=== PATIENT | male | born 1945 | race African-American/Black ===

== ENCOUNTER 2021-06-15 18:27 | Emergency (ER) | payer MEDICARE, OTHER ==
[~2021-06-15] VITALS: Ht 165.1 cm; Wt 63.5 kg
[2021-06-15] MEDS ORDERED: RISP0.5T5 PO (19:07)
[2021-06-15] MEDS ORDERED: BISA10SU61 RC (19:07)
[2021-06-15] MEDS ORDERED: MAGN400O6 PO (19:07)
[2021-06-15] MEDS ORDERED: MEMA10TA PO (19:07)
[2021-06-15] MEDS ORDERED: NA P133E RC (19:07)
[2021-06-15] MEDS ORDERED: MELA3TAB41 PO (19:07)
[2021-06-15] MEDS ORDERED: DONE10TA11 PO (19:07)
[2021-06-15] MEDS ORDERED: DOCU100C36 PO (19:07)
[2021-06-15] MEDS ORDERED: ACET-2154 PO (19:07)
[2021-06-15] MEDS ORDERED: ACET-73 PO (19:07)
[2021-06-15 19:22] LABS: MEAN CORPUSCULAR HEMOGLOBIN 31.8 uug (23.8-33.4); MEAN CORPUSCULAR VOLUME 92.9 fL (73.0-96.2); PLATELET COUNT (AUTO) 180 K/uL (152-348)
[2021-06-15 19:39] LABS: CARBON DIOXIDE 27 mmol/L (21-32); CHLORIDE 100 mmol/L (98-107); CREATININE 1.4 mg/dL (0.6-1.3); GLUCOSE 145 mg/dL (74-106); POTASSIUM 4.4 mmol/L (3.5-5.1); UREA NITROGEN, BLOOD 18 mg/dL (7-18)
[2021-06-15 19:44] LABS: ALANINE AMINOTRANSFERASE 25 U/L (16-63); ALKALINE PHOSPHATASE 96 U/L (50-136); ASPARTATE AMINOTRANSFERASE 42 U/L (15-37); BILIRUBIN,DIRECT 0.1 mg/dL (0.0-0.2); BILIRUBIN,TOTAL 0.4 mg/dL (0.2-1.0); TOTAL PROTEIN, SERUM 6.5 g/dL (6.4-8.2)
[2021-06-15] MEDS: IV NORMAL SALINE 1000 ML BAG IV ONE (19:54)
[2021-06-15 21:21] LABS: *BILIRUBIN,URIN NEGATIVE (NEGATIVE); *BLOOD, URINE 1+ (NEGATIVE); *CLARITY,URINE CLEAR (CLEAR); *COLOR,URINE YELLOW (YELLOW); *KETONES,URINE NEGATIVE (NEGATIVE); LEUKOCYTE ESTERASE ,URINE NEGATIVE (NEGATIVE); NITRITE, URINE NEGATIVE (NEGATIVE); UGLUCOSE NEGATIVE (NEGATIVE)
--- NOTE | 2021-06-15 22:19 | NUR ---
Spoke with pts granddaughter, Nya Blas, phone number is [phone]
[2021-06-15 22:44] LABS: BACTERIA,URINE NONE SEEN /HPF (NONE SEEN); SQUAMOUS EPITHELIAL CELL,UR FEW /HPF (NONE SEEN); WBC,URINE 0-3 /HPF (0-3)
--- NOTE | 2021-06-15 23:36 | NUR ---
CALLED [facility] . ETA IS 90MINS.
--- NOTE | 2021-06-15 23:44 | NUR ---
Spoke with Chinmay JACKSON from [facility] about discharge
--- NOTE | 2021-06-16 01:37 | NUR ---
APA 210 at bedside to talk pt back to facility, pt in stable condition
--- NOTE | 2021-06-16 01:37 | NUR ---
IV removed. Catheter intact and site benign. Pressure and 4x4 gauze applied to site. No bleeding noted.
[2021-06-16 01:39] VITALS: BP 117/67
== END 2021-06-16 01:44 ==
LOC: ER 18:32
DX: R55 Syncope and collapse (principal); F09 Unspecified mental disorder due to known physiological condition; F03.90 Unspecified dementia, unspecified severity, without behavioral disturbance, psychotic disturbance, mood disturbance, and anxiety; Z79.899 Other long term (current) drug therapy
CPT/HCPCS: 36415; 70030-TC; 70450; 71045; 83605; 83735; 85025; 85651; 85730; 87040; 93005; A4663; J7030